=== PATIENT | female | born 1960 | race Caucasian/White ===

== ENCOUNTER 2016-11-17 12:39 | Inpatient (IN) | payer MEDICAID ==
--- NOTE | 2016-11-17 12:49 | ER Document Report ---
ED Medical Screen (RME) - General Stated Complaint: DIFFICULTY BREATHING Notes: Patient states she had started having difficulty breathing yesterday. Patient has history of asthma, and inhalers are not helping. Denies URI sumptoms prior to this occurring. Patient complains of chest pain but mostly from being difficult to take a breath. Patient coughing up yellow phlegm. Patient sent over by primary care provider for evaluation. Patient does have a fever. I have greeted and performed a rapid initial assessment of this patient. A comprehensive ED assessment and evaluation of the patient, analysis of test results and completion of the medical decision making process will be conducted by additional ED providers. TRAVEL OUTSIDE OF THE [place] IN LAST 30 DAYS: No - Related Data Allergies/Adverse Reactions: wheat [Wheat] Allergy (Unknown, Verified 11/17/16 12:46) per allergy tests duloxetine [From Cymbalta] Allergy (Verified 11/17/16 12:46) sertraline [From Zoloft] Allergy (Verified 11/17/16 12:46) aspirin [Aspirin] Adverse Reaction (Intermediate, Verified 11/17/16 12:46) GI upset naproxen [From Aleve] Adverse Reaction (Intermediate, Verified 11/17/16 12:46) GI upset Past Medical History - Past Medical History Cardiac Medical History: Denies: Hx Coronary Artery Disease, Hx Heart Attack, Hx Hypertension Pulmonary Medical History: Reports: Hx Asthma, Hx Pneumonia Denies: Hx Bronchitis, Hx COPD Neurological Medical History: Denies: Hx Cerebrovascular Accident, Hx Seizures Malignancy Medical History: Reports: Hx Breast Cancer GI Medical History: Musculoskeltal Medical History: Reports Hx Arthritis Infectious Medical History: Past Surgical History: Reports: Hx Breast Surgery - double mastectomy, Hx Hysterectomy. Denies: Hx Pacemaker - Immunizations Hx Diphtheria, Pertussis, Tetanus Vaccination: Yes - whooping cough also 02/2010 Physical Exam - Respiratory Respiratory status: Labored Breath sounds: Decreased air movement, Wheezing - inspiratory and expiratory
[2016-11-17] MEDS ORDERED: ALBUTEROL SULFATE 0.083% NEB 2.5 MG/3 ML AMPUL NEB ONE ×2 (12:52)
[2016-11-17 13:24] LABS: ABSOLUTE EOSINOPHILS # (AUTO) 0.2 10^3/uL (0.0-0.6); ABSOLUTE LYMPHOCYTES (AUTO) 1.4 10^3/uL (0.5-4.7); ABSOLUTE MONOCYTES (AUTO) 0.5 10^3/uL (0.1-1.4); ABSOLUTE NEUT (AUTO) 10.6 10^3/uL (1.7-8.2); BASOPHILS % (AUTO) 0.2 % (0-2); EOSINOPHILS % (AUTO) 1.8 % (0-6); HEMATOCRIT 44.1 % (36.0-47.0); HEMOGLOBIN 14.8 g/dL (12.0-15.5); HGB HCT DIFFERENCE 0.3; LYMPHOCYTES % (AUTO) 10.7 % (13-45); MEAN CORPUSCULAR HGB CONC 33.6 g/dL (32.0-36.0); MEAN CORPUSCULAR VOLUME 89 fl (80-97); MONOCYTES % (AUTO) 4.1 % (3-13); RED BLOOD COUNT 4.94 10^6/uL (3.72-5.28); RED CELL DISTRIBUTION WIDTH 14.7 % (11.5-14.0); SEGMENTED NEUTROPHILS % (AUTO) 83.2 % (42-78); WHITE BLOOD COUNT 12.7 10^3/uL (4.0-10.5)
[2016-11-17 13:29] LABS: PROTHROMBIN TIME 12.5 SEC (11.4-15.4)
[2016-11-17 13:41] LABS: ALANINE AMINOTRANSFERASE 18 U/L (9-52); ALBUMIN 4.4 g/dL (3.5-5.0); ALKALINE PHOSPHATASE 79 U/L (38-126); ANION GAP 14 (5-19); ASPARTATE AMINO TRANSFERASE 20 U/L (14-36); BILIRUBIN,TOTAL 0.5 mg/dL (0.2-1.3); BLOOD UREA NITROGEN 7 mg/dL (7-20); CALCIUM 9.3 mg/dL (8.4-10.2); CARBON DIOXIDE 27 mmol/L (22-30); CHLORIDE 104 mmol/L (98-107); CREATINE KINASE 62 U/L (30-135); CREATININE RESULT 0.55 mg/dL (0.52-1.25); GLUCOSE 100 mg/dL (75-110); TOTAL PROTEIN 7.7 g/dL (6.3-8.2)
[2016-11-17 13:53] LABS: CREATINE KINASE MB 0.28 ng/mL (<4.55)
[2016-11-17 13:54] LABS: TROPONIN I < 0.012 ng/mL
[2016-11-17] MEDS ORDERED: IPRATROPIUM/ALBUTEROL 0.5-2.5 MG/3 ML AMPUL NEB ONE (14:24)
[2016-11-17] MEDS ORDERED: PREDNISONE 20 MG TABLET PO ONE (14:24)
--- NOTE | 2016-11-17 14:31 | ER Document Report ---
ED Respiratory Problem - General Chief Complaint: Breathing Difficulty Stated Complaint: DIFFICULTY BREATHING Notes: The patient is a 56-year-old female, past medical history asthma, lupus, presents with 1 day of wheezing, dry cough and shortness of breath. She said the shortness of breath started after she went outside in the cold. She tried her daughter's albuterol with mild relief of her symptoms. The patient stopped smoking about a week ago and has had increased coughing since then. She is also having mild chest pain when she coughs. She denies fevers, back pain, nausea, vomiting, leg swelling, headache, hemoptysis, recent travel or sick contacts. TRAVEL OUTSIDE OF THE [place] IN LAST 30 DAYS: No - Related Data Allergies/Adverse Reactions: wheat [Wheat] Allergy (Unknown, Verified 11/17/16 12:46) per allergy tests duloxetine [From Cymbalta] Allergy (Verified 11/17/16 12:46) sertraline [From Zoloft] Allergy (Verified 11/17/16 12:46) aspirin [Aspirin] Adverse Reaction (Intermediate, Verified 11/17/16 12:46) GI upset naproxen [From Aleve] Adverse Reaction (Intermediate, Verified 11/17/16 12:46) GI upset Past Medical History - General Information source: Patient - Social History Smoking Status: Former Smoker Chew tobacco use (# tins/day): No Frequency of alcohol use: None Drug Abuse: None Family History: Reviewed & Not Pertinent Patient has suicidal ideation: No Patient has homicidal ideation: No - Past Medical History Cardiac Medical History: Denies: Hx Coronary Artery Disease, Hx Heart Attack, Hx Hypertension Pulmonary Medical History: Reports: Hx Asthma, Hx Pneumonia Denies: Hx Bronchitis, Hx COPD Neurological Medical History: Denies: Hx Cerebrovascular Accident, Hx Seizures Renal/ Medical History: Denies: Hx Peritoneal Dialysis Malignancy Medical History: Reports: Hx Breast Cancer GI Medical History: Musculoskeltal Medical History: Reports Hx Arthritis Infectious Medical History: Past Surgical History: Reports: Hx Breast Surgery - double mastectomy, Hx Hysterectomy. Denies: Hx Pacemaker - Immunizations Hx Diphtheria, Pertussis, Tetanus Vaccination: Yes - whooping cough also 02/2010 Review of Systems - Review of Systems Notes: REVIEW OF SYSTEMS: CONSTITUTIONAL: -fevers, -chills EENT: -eye pain, -difficulty swallowing, -nasal congestion CARDIOVASCULAR: +chest pain, -syncope. RESPIRATORY: +cough, +SOB GASTROINTESTINAL: -abdominal pain, -nausea, -vomiting, -diarrhea GENITOURINARY: -dysuria, -hematuria MUSCULOSKELETAL: -back pain, -neck pain SKIN: -rash or skin lesions. HEMATOLOGIC: -easy bruising or bleeding. LYMPHATIC: -swollen, enlarged glands. NEUROLOGICAL: -altered mental status or loss of consciousness, -headache, - neurologic symptoms PSYCHIATRIC: -anxiety, -depression. ALL OTHER SYSTEMS REVIEWED AND NEGATIVE. Physical Exam - Vital signs Vitals: Temp Pulse Resp BP Pulse Ox 99.6 F 103 H 22 H 139/82 H 88 L 11/17/16 12:46 11/17/16 12:46 11/17/16 12:46 11/17/16 12:46 11/17/16 12:46 - Notes Notes: PHYSICAL EXAMINATION: GENERAL: Well-appearing, well-nourished and in no acute distress. HEAD: Atraumatic, normocephalic. EYES: Pupils equal round and reactive to light, extraocular movements intact, sclera anicteric, conjunctiva are normal. ENT: nares patent, oropharynx clear without exudates. Moist mucous membranes. NECK: Normal range of motion, supple without lymphadenopathy LUNGS: No respiratory distress. Bilateral wheezing. No retractions. HEART: Regular rate and rhythm without murmurs ABDOMEN: Soft, nontender, normoactive bowel sounds. No guarding, no rebound. No masses appreciated. EXTREMITIES: Normal range of motion, no pitting or edema. No cyanosis. NEUROLOGICAL: Cranial nerves grossly intact. Normal speech, normal gait. Normal sensory, motor, and reflex exams. PSYCH: Normal mood, normal affect. SKIN: Warm, Dry, normal turgor, no rashes or lesions noted. Course - Re-evaluation Re-evalutation: Patient with wheezing and shortness of breath that started suddenly. After DuoNeb was and steroids, patient still feeling short of breath. Lungs are clear now. Patient still dropping down to 86% on room air and she does not wear oxygen at home. With tachycardia, hypoxia, tachypnea and history of lupus , patient is moderate to high risk for PE. Will obtain CTA to assess presence of PE. 11/17/16 17:05 Pt does not have PE on CTA, but does have a possible early lingula pneumonia. With leukocytosis and hypoxia, will begin CAP antibiotics. Patient satting 94% on 3 L nasal cannula. Patient requires admission for hypoxia. Spoke to Dr. Hook and he has accepted patient to Inpatient General Medical bed. - Vital Signs Vital signs: Temp Pulse Resp BP Pulse Ox 99.6 F 103 H 22 H 139/82 H 91 L 11/17/16 12:46 11/17/16 12:46 11/17/16 12:46 11/17/16 12:46 11/17/16 14:21 - Laboratory Result Diagrams: 11/17/16 13:05 11/17/16 13:05 Laboratory results interpreted by me: 11/17/16 13:05 WBC 12.7 H RDW 14.7 H Seg Neutrophils % 83.2 H Lymphocytes % 10.7 L Absolute Neutrophils 10.6 H - Diagnostic Test Radiology reviewed: Image reviewed, Reports reviewed Radiology results interpreted by me: CXR: NAD CTA: No PE, possible early lingula pneumonia. - EKG Interpretation by Me EKG shows normal: Sinus rhythm, [place], Intervals, QRS Complexes, ST-T Waves Rate: Tachycardia Discharge - Discharge Clinical Impression: Asthma exacerbation, Hypoxia Pneumonia Qualifiers: Pneumonia type: due to unspecified organism Laterality: right Lung location: middle lobe of lung Qualified Code(s): J18.1 - Lobar pneumonia, unspecified organism Condition: Stable Disposition: ADMITTED INPATIENT Admitting Provider: Sangita Hook Unit Admitted: Medical Floor Referrals: SIDRA OVALLE DO [Primary Care Provider] - Follow up as needed
[2016-11-17] MEDS ORDERED: MORPHINE SULFATE IR 30 MG TABLET PO ONE ×2 (16:08→17:00)
[2016-11-17] MEDS ORDERED: CEFTRIAXONE INJ 1000 MG VIAL IV ONE (17:00)
[2016-11-17] MEDS ORDERED: AZITHROMYCIN INJ 500 MG VIAL IV ONE (17:00)
[2016-11-17] MEDS ORDERED: ONDANSETRON HCL INJ/PF 4 MG/2 ML SDV IV PRN (17:42)
[2016-11-17] MEDS ORDERED: ONDANSETRON 4 MG TAB.RAPDIS PO PRN (17:42)
[2016-11-17] MEDS ORDERED: ACETAMINOPHEN 325 MG TABLET PO PRN (17:42)
[2016-11-17] MEDS ORDERED: (PENDING PHARMACY ID) (Ranitidine Hcl [Zantac 150 Mg Tablet] 150 MG) PO PRN (17:46)
[2016-11-17] MEDS ORDERED: BECLOMETHASONE DIPROPIONATE IH SCH (18:00)
[2016-11-17] MEDS ORDERED: (PENDING PHARMACY ID) (Gabapentin [Gabapentin] 800 MG) PO SCH (18:00)
--- NOTE | 2016-11-17 18:03 | PDOC H&P ---
History of Present Illness Admission Date/PCP: SIDRA OVALLE DO Patient complains of: Shortness of breath History of Present Illness: JULIA LOMELI is a 56 year old female with a history of asthma who presents with a 2 day history of a cough productive of some yellow sputum as well as wheezing and shortness of breath. Patient reports is gotten worse over the last 2 days and she presented today and was seen emergency room and found to have an acute asthma exacerbation. Patient had a chest CT because the possibility of a PE which was negative for PE but did show questionable early infiltrate. The patient denies having any fevers or chills associated with this. She denies any orthopnea or PND. She denies any lower extremity edema. The patient has had the productive cough and reports that both of her daughters have been sick for the last several days. Past Medical History Cardiac Medical History: Denies: Coronary Artery Disease, Myocardial Infarction, Hypertension Pulmonary Medical History: Reports: Asthma, Pneumonia Denies: Bronchitis, Chronic Obstructive Pulmonary Disease (COPD) EENT Medical History: Reports: None Neurological Medical History: Denies: Seizures Malignancy Medical History: Reports: Breast Cancer GI Medical History: Reports: Diverticulitis, Other - Irritable bowel syndrome Musculoskeltal Medical History: Reports: Arthritis, Other - Lupus Skin Medical History: Reports: None Psychiatric Medical History: Reports: Depression, Post Traumatic Stress Disorder Hematology: Denies: Anemia Infectious Medical History: Reports: None Past Surgical History Past Surgical History: Reports: Hysterectomy, Mastectomy - Bilateral, Orthopedic Surgery Denies: Pacemaker Social History Information Source: Patient Lives with: Family Smoking Status: Former Smoker Frequency of Alcohol Use: None Hx Recreational Drug Use: No Drugs: None Hx Prescription Drug Abuse: No - Advance Directive Resuscitation Status: Full Code Family History Family History: Mother is 86 alive and has breast cancer. Father's health history is unknown. Parental Family History Reviewed: Yes Children Family History Reviewed: No Sibling(s) Family History Reviewed.: No Medication/Allergy Home Medications: Cetirizine HCl [Zyrtec 10 mg Tablet] 10 mg PO DAILY 05/06/12 Beclomethasone Dipropionate [Qvar Aerosol w/Adapter] 7.3 gm IH BID #1 aer.w.adap 05/07/12 Albuterol Sulfate [Proventil HFA] 6.7 gm IH BID 06/30/12 Diazepam [Valium] 10 mg PO TID 06/30/12 Furosemide [Lasix 20 mg Tablet] 20 mg PO DAILY 06/28/16 Gabapentin 800 mg PO TID 06/28/16 Morphine Sulfate [Morphine Sulfate ER] 15 mg PO Q6H PRN 06/28/16 Morphine Sulfate [Morphine Sulfate ER] 30 mg PO BID 06/28/16 Ranitidine HCl [Zantac] 150 mg PO ASDIR PRN 06/28/16 Allergies/Adverse Reactions: wheat [Wheat] Allergy (Unknown, Verified 11/17/16 12:46) per allergy tests duloxetine [From Cymbalta] Allergy (Verified 11/17/16 12:46) sertraline [From Zoloft] Allergy (Verified 11/17/16 12:46) aspirin [Aspirin] Adverse Reaction (Intermediate, Verified 11/17/16 12:46) GI upset naproxen [From Aleve] Adverse Reaction (Intermediate, Verified 11/17/16 12:46) GI upset Review of Systems Constitutional: PRESENT: fever(s), weakness. ABSENT: chills, headache(s), night sweats, weight gain, weight loss Eyes: ABSENT: visual disturbances Ears: ABSENT: hearing changes Cardiovascular: PRESENT: dyspnea on exertion. ABSENT: chest pain, edema, orthropnea, palpitations Respiratory: PRESENT: cough, dyspnea, sputum. ABSENT: hemoptysis Gastrointestinal: ABSENT: abdominal pain, constipation, diarrhea, hematemesis, hematochezia, nausea, vomiting Genitourinary: PRESENT: other - Has a bladder stimulator in place. ABSENT: dysuria, hematuria Musculoskeletal: PRESENT: back pain Integumentary: ABSENT: rash, wounds Neurological: ABSENT: abnormal gait, abnormal speech, confusion, dizziness, focal weakness, syncope Psychiatric: ABSENT: anxiety, depression Endocrine: ABSENT: cold intolerance, heat intolerance, polydipsia, polyuria Hematologic/Lymphatic: ABSENT: easy bleeding, easy bruising Physical Exam Vital Signs: Temp Pulse Resp BP Pulse Ox 99.6 F 103 H 22 H 139/82 H 91 L 11/17/16 12:46 11/17/16 12:46 11/17/16 12:46 11/17/16 12:46 11/17/16 14:21 Intake & Output 11/16/16 11/17/16 11/18/16 06:59 06:59 06:59 Weight 87.997 kg General appearance: PRESENT: no acute distress, well-developed, well-nourished Head exam: PRESENT: atraumatic, normocephalic Eye exam: PRESENT: conjunctiva pink, EOMI, PERRLA. ABSENT: scleral icterus Ear exam: PRESENT: normal external ear exam Mouth exam: PRESENT: moist, tongue midline Neck exam: ABSENT: carotid bruit, JVD, lymphadenopathy, thyromegaly Respiratory exam: PRESENT: wheezes - Bilateral expiratory wheezes.. ABSENT: rales, rhonchi Cardiovascular exam: PRESENT: RRR. ABSENT: diastolic murmur, rubs, systolic murmur Pulses: PRESENT: normal dorsalis pedis pul GI/Abdominal exam: PRESENT: normal bowel sounds, soft. ABSENT: distended, guarding, mass, organolmegaly, rebound, tenderness Rectal exam: PRESENT: deferred Extremities exam: ABSENT: calf tenderness, clubbing, pedal edema Neurological exam: PRESENT: alert, awake, oriented to person, oriented to place , oriented to time, oriented to situation, CN II-XII grossly intact. ABSENT: motor sensory deficit Psychiatric exam: PRESENT: appropriate affect Skin exam: PRESENT: dry, intact, warm. ABSENT: cyanosis, rash Results Laboratory Results: 11/17/16 13:05 11/17/16 13:05 11/17/16 11/17/16 13:05 13:05 WBC 12.7 H RBC 4.94 Hgb 14.8 Hct 44.1 MCV 89 MCH 30.0 MCHC 33.6 RDW 14.7 H Plt Count 193 Seg Neutrophils % 83.2 H Lymphocytes % 10.7 L Monocytes % 4.1 Eosinophils % 1.8 Basophils % 0.2 Absolute Neutrophils 10.6 H Absolute Lymphocytes 1.4 Absolute Monocytes 0.5 Absolute Eosinophils 0.2 Absolute Basophils 0.0 Sodium 145.0 Potassium 4.0 Chloride 104 Carbon Dioxide 27 Anion Gap 14 BUN 7 Creatinine 0.55 Est GFR ( Amer) > 60 Est GFR (Non-Af Amer) > 60 Glucose 100 Calcium 9.3 Total Bilirubin 0.5 AST 20 ALT 18 Alkaline Phosphatase 79 Total Protein 7.7 Albumin 4.4 11/17/16 11/17/16 13:05 13:05 Creatine Kinase 62 CK-MB (CK-2) 0.28 Troponin I < 0.012 Impressions: Chest X-Ray 11/17/16 12:47 IMPRESSION: NO ACUTE RADIOGRAPHIC FINDING IN THE CHEST. Chest/Abdomen CTA 11/17/16 16:06 IMPRESSION: 1. Patchy airspace disease in the lingula most likely atelectasis although developing pneumonia or edema are possibilities. 2. No pulmonary emboli. 3. Right hilar adenopathy most likely reactive. Assessment & Plan - Diagnosis (1) Asthma exacerbation Is this a current diagnosis for this admission?: YesPlan: Patient has an acute asthma exacerbation possibly pneumonia. We will treat with IV Solu-Medrol, antibiotics and nebulizers. Give oxygen as needed also. (2) Pneumonia Qualifiers: Pneumonia type: due to unspecified organism Laterality: right Lung location: middle lobe of lung Qualified Code(s): J18.1 - Lobar pneumonia, unspecified organism Is this a current diagnosis for this admission?: YesPlan: Patient had a CT angiogram that shows a small area of abnormality possibly atelectasis versus pneumonia. We'll go ahead and treat presumptively for presumed pneumonia with Rocephin and Zithromax. (3) Neurogenic bladder Is this a current diagnosis for this admission?: YesPlan: Patient has a history of neurogenic bladder but has a bladder stimulator in place and has good control with this. Patient is unable to have an MRI. (4) Depression Is this a current diagnosis for this admission?: YesPlan: Patient is controlled without medications at this time. (5) Lupus (systemic lupus erythematosus) Is this a current diagnosis for this admission?: YesPlan: Patient was just diagnosed 2 months ago with lupus and was started on Plaquenil. We will hold Plaquenil well she has an active infection. (6) Breast cancer Is this a current diagnosis for this admission?: Yes (7) Irritable bowel syndrome (IBS) Is this a current diagnosis for this admission?: Yes (8) Posttraumatic stress disorder Is this a current diagnosis for this admission?: YesPlan: Patient takes Valium for this. (9) Chronic back pain Is this a current diagnosis for this admission?: YesPlan: Patient has been on chronic narcotics and we will continue with her usual dose. - Time Time Spent: 50 to 70 Minutes - Inpatient Certification Medical Necessity: Need Close Monitoring Due to Risk of Patient Decompensation, Need for IV Antibiotics - Plan Summary Plan Summary: We'll admit as a full admission as I anticipate require greater than 2 midnight hospital stay because of her wheezing and need for IV steroids and nebulizers.
[2016-11-17 18:47] LABS: APPEARANCE,URINE CLEAR; BILIRUBIN,URINE NEGATIVE (NEGATIVE); GLUCOSE, URINE NEGATIVE (NEGATIVE); KETONES,URINE NEGATIVE (NEGATIVE); LEUKOCYTE ESTERASE,URINE NEGATIVE (NEGATIVE); NITRITE,URINE NEGATIVE (NEGATIVE); PROTEIN,URINE NEGATIVE (NEGATIVE); URINE SPECIFIC GRAVITY 1.056; UROBILINOGEN,URINE NEGATIVE mg/dL (<2.0)
[2016-11-17] MEDS ORDERED: ENOXAPARIN SODIUM INJ 40 MG/0.4 ML DISP.SYRIN SUBCUT ONE (19:00)
[2016-11-17] MEDS: IPRATROPIUM/ALBUTEROL 0.5-2.5 MG/3 ML AMPUL NEB SCH (21:11)
[2016-11-17] MEDS: GABAPENTIN 400 MG CAPSULE PO SCH (22:11)
[2016-11-17] MEDS: DIAZEPAM 5 MG TABLET PO SCH (22:12)
[2016-11-17] MEDS: MORPHINE SULFATE SR 30 MG TABLET PO SCH (22:12)
[2016-11-17] MEDS: METHYLPREDNISOLONE INJ 40 MG/1 ML SDV IV SCH (22:13)
[2016-11-17] MEDS: FAMOTIDINE 20 MG TABLET PO SCH (22:13)
[2016-11-17] MEDS: NORMAL SALINE 1000 ML 1,000 ML IV PRN (22:13)
[2016-11-18] MEDS: IPRATROPIUM/ALBUTEROL 0.5-2.5 MG/3 ML AMPUL NEB SCH ×4 (02:23→20:27)
[2016-11-18 05:35] LABS: HEMATOCRIT 39.7 % (36.0-47.0); HEMOGLOBIN 13.3 g/dL (12.0-15.5); HGB HCT DIFFERENCE 0.2; MEAN CORPUSCULAR HEMOGLOBIN 29.9 pg (27.0-33.4); MEAN CORPUSCULAR HGB CONC 33.6 g/dL (32.0-36.0); MEAN CORPUSCULAR VOLUME 89 fl (80-97); RED BLOOD COUNT 4.45 10^6/uL (3.72-5.28); RED CELL DISTRIBUTION WIDTH 14.2 % (11.5-14.0); WHITE BLOOD COUNT 11.1 10^3/uL (4.0-10.5)
[2016-11-18 05:55] LABS: ANION GAP 14 (5-19); BLOOD UREA NITROGEN 9 mg/dL (7-20); CALCIUM 8.9 mg/dL (8.4-10.2); CARBON DIOXIDE 24 mmol/L (22-30); CHLORIDE 106 mmol/L (98-107); CREATININE RESULT 0.45 mg/dL (0.52-1.25); GLUCOSE 138 mg/dL (75-110); POTASSIUM 4.3 mmol/L (3.6-5.0); SODIUM 143.5 mmol/L (137-145)
[2016-11-18] MEDS: DIAZEPAM 5 MG TABLET PO SCH ×3 (06:29→21:02)
[2016-11-18] MEDS: METHYLPREDNISOLONE INJ 40 MG/1 ML SDV IV SCH ×3 (06:29→21:01)
[2016-11-18] MEDS: GABAPENTIN 400 MG CAPSULE PO SCH ×3 (06:29→21:01)
[2016-11-18] MEDS: NORMAL SALINE 1000 ML 1,000 ML IV PRN ×2 (08:07→18:31)
[2016-11-18] MEDS: ENOXAPARIN SODIUM INJ 40 MG/0.4 ML DISP.SYRIN SUBCUT SCH (08:07)
[2016-11-18] MEDS ORDERED: BUTALB/ACETAMINOPHEN/CAFFEINE 1 TAB EACH PO PRN (08:37)
[2016-11-18] MEDS: FUROSEMIDE 20 MG TABLET PO SCH (09:35)
[2016-11-18] MEDS: CETIRIZINE 10 MG TABLET PO SCH (09:35)
[2016-11-18] MEDS: FAMOTIDINE 20 MG TABLET PO SCH ×2 (09:36→21:02)
[2016-11-18] MEDS: MORPHINE SULFATE SR 30 MG TABLET PO SCH ×2 (09:36→21:03)
--- NOTE | 2016-11-18 14:40 | PDOC PROGRESS REPORT ---
Subjective Progress Note for:: 11/18/16 Subjective:: Reports that her wheezing is better. Physical Exam Vital Signs: Temp Pulse Resp BP Pulse Ox 98.4 F 82 18 101/58 L 99 11/18/16 12:12 11/18/16 12:12 11/18/16 12:12 11/18/16 12:12 11/18/16 12:12 Intake & Output 11/17/16 11/18/16 11/19/16 06:59 06:59 06:59 Intake Total 670 Balance 670 Weight 94.4 kg General appearance: PRESENT: no acute distress Eye exam: PRESENT: conjunctiva pink. ABSENT: scleral icterus Mouth exam: PRESENT: moist, tongue midline Neck exam: ABSENT: JVD Respiratory exam: PRESENT: wheezes - Bilateral expiratory wheezes. ABSENT: rales, rhonchi Cardiovascular exam: PRESENT: RRR. ABSENT: diastolic murmur, rubs, systolic murmur GI/Abdominal exam: PRESENT: normal bowel sounds, soft. ABSENT: distended, guarding, mass, organolmegaly, rebound, tenderness Extremities exam: ABSENT: calf tenderness, clubbing, pedal edema Neurological exam: PRESENT: alert, awake, oriented to person, oriented to place , oriented to time, oriented to situation, CN II-XII grossly intact. ABSENT: motor sensory deficit Psychiatric exam: PRESENT: appropriate affect Skin exam: PRESENT: dry, intact, warm. ABSENT: cyanosis, rash Results Laboratory Results: 11/18/16 05:14 11/18/16 05:14 11/17/16 11/18/16 11/18/16 17:57 05:14 05:14 WBC 11.1 H RBC 4.45 Hgb 13.3 Hct 39.7 MCV 89 MCH 29.9 MCHC 33.6 RDW 14.2 H Plt Count 169 Sodium 143.5 Potassium 4.3 Chloride 106 Carbon Dioxide 24 Anion Gap 14 BUN 9 Creatinine 0.45 L Est GFR ( Amer) > 60 Est GFR (Non-Af Amer) > 60 Glucose 138 H Calcium 8.9 Magnesium 2.0 Urine Color YELLOW Urine Appearance CLEAR Urine pH 5.0 Ur Specific [place] 1.056 Urine Protein NEGATIVE Urine Glucose (UA) NEGATIVE Urine Ketones NEGATIVE Urine Blood SMALL H Urine Nitrite NEGATIVE Ur Leukocyte Esterase NEGATIVE Urine WBC (Auto) 1 Urine RBC (Auto) 5 Impressions: Chest X-Ray 11/17/16 12:47 IMPRESSION: NO ACUTE RADIOGRAPHIC FINDING IN THE CHEST. Chest/Abdomen CTA 11/17/16 16:06 IMPRESSION: 1. Patchy airspace disease in the lingula most likely atelectasis although developing pneumonia or edema are possibilities. 2. No pulmonary emboli. 3. Right hilar adenopathy most likely reactive. Assessment & Plan - Diagnosis (1) Asthma exacerbation Is this a current diagnosis for this admission?: YesPlan: Patient has an acute asthma exacerbation possibly pneumonia. We will continue with IV Solu-Medrol, antibiotics and nebulizers. Give oxygen as needed also. (2) Pneumonia Qualifiers: Pneumonia type: due to unspecified organism Laterality: right Lung location: middle lobe of lung Qualified Code(s): J18.1 - Lobar pneumonia, unspecified organism Is this a current diagnosis for this admission?: YesPlan: Patient had a CT angiogram that shows a small area of abnormality possibly atelectasis versus pneumonia. We'll go ahead and treat presumptively for presumed pneumonia with Rocephin and Zithromax. (3) Neurogenic bladder Is this a current diagnosis for this admission?: YesPlan: Patient has a history of neurogenic bladder but has a bladder stimulator in place and has good control with this. Patient is unable to have an MRI. (4) Depression Is this a current diagnosis for this admission?: YesPlan: Patient is controlled without medications at this time. (5) Lupus (systemic lupus erythematosus) Is this a current diagnosis for this admission?: YesPlan: Patient was just diagnosed 2 months ago with lupus and was started on Plaquenil. We will hold Plaquenil well she has an active infection. (6) Breast cancer Is this a current diagnosis for this admission?: Yes (7) Irritable bowel syndrome (IBS) Is this a current diagnosis for this admission?: Yes (8) Posttraumatic stress disorder Is this a current diagnosis for this admission?: YesPlan: Patient takes Valium for this. (9) Chronic back pain Is this a current diagnosis for this admission?: YesPlan: Patient has been on chronic narcotics and we will continue with her usual dose. - Time Time Spent with patient: 25-34 minutes - Inpatient Certification Medical Necessity: Need Close Monitoring Due to Risk of Patient Decompensation
[2016-11-18] MEDS: MORPHINE SULFATE SR 15 MG TABLET PO PRN ×2 (14:50→21:02)
--- NOTE | 2016-11-18 16:02 | EKG REPORT ---
SEVERITY:- OTHERWISE NORMAL ECG - SINUS TACHYCARDIA : Confirmed by: Rachel Perez MD 18-Nov-2016 16:02:00
[2016-11-18] MEDS ORDERED: AZITHROMYCIN 500 MG in DEXTROSE 5%-WATER 250 ML IV SCH (18:00)
[2016-11-18] MEDS ORDERED: CEFTRIAXONE 1 GM/D5W RTU 1 GM/50 ML RTUPB IV SCH (20:00)
[2016-11-19] MEDS: IPRATROPIUM/ALBUTEROL 0.5-2.5 MG/3 ML AMPUL NEB SCH ×2 (02:17→08:06)
[2016-11-19 04:46] LABS: ABSOLUTE LYMPHOCYTES (AUTO) 1.9 10^3/uL (0.5-4.7); ABSOLUTE MONOCYTES (AUTO) 0.9 10^3/uL (0.1-1.4); ABSOLUTE NEUT (AUTO) 11.3 10^3/uL (1.7-8.2); BASOPHILS % (AUTO) 0.2 % (0-2); EOSINOPHILS % (AUTO) 0.1 % (0-6); HEMATOCRIT 39.1 % (36.0-47.0); HEMOGLOBIN 12.8 g/dL (12.0-15.5); HGB HCT DIFFERENCE -0.7; LYMPHOCYTES % (AUTO) 13.2 % (13-45); MEAN CORPUSCULAR HEMOGLOBIN 29.7 pg (27.0-33.4); MEAN CORPUSCULAR HGB CONC 32.8 g/dL (32.0-36.0); MEAN CORPUSCULAR VOLUME 90 fl (80-97); MONOCYTES % (AUTO) 6.6 % (3-13); RED BLOOD COUNT 4.32 10^6/uL (3.72-5.28); RED CELL DISTRIBUTION WIDTH 14.7 % (11.5-14.0); SEGMENTED NEUTROPHILS % (AUTO) 79.9 % (42-78); WHITE BLOOD COUNT 14.2 10^3/uL (4.0-10.5)
[2016-11-19 05:07] LABS: ANION GAP 12 (5-19); BLOOD UREA NITROGEN 17 mg/dL (7-20); CALCIUM 9.1 mg/dL (8.4-10.2); CARBON DIOXIDE 27 mmol/L (22-30); CHLORIDE 107 mmol/L (98-107); CREATININE RESULT 0.55 mg/dL (0.52-1.25); GLUCOSE 111 mg/dL (75-110); POTASSIUM 4.4 mmol/L (3.6-5.0); SODIUM 145.5 mmol/L (137-145)
[2016-11-19] MEDS: DIAZEPAM 5 MG TABLET PO SCH (06:48)
[2016-11-19] MEDS: GABAPENTIN 400 MG CAPSULE PO SCH (06:48)
[2016-11-19] MEDS: METHYLPREDNISOLONE INJ 40 MG/1 ML SDV IV SCH (06:48)
[2016-11-19] MEDS: MORPHINE SULFATE SR 15 MG TABLET PO PRN (06:53)
[2016-11-19] MEDS: ENOXAPARIN SODIUM INJ 40 MG/0.4 ML DISP.SYRIN SUBCUT SCH (08:03)
[2016-11-19 09:02] VITALS: BP 106/57
[2016-11-19] MEDS: FAMOTIDINE 20 MG TABLET PO SCH (09:05)
[2016-11-19] MEDS: CETIRIZINE 10 MG TABLET PO SCH (09:05)
[2016-11-19] MEDS: FUROSEMIDE 20 MG TABLET PO SCH (09:05)
[2016-11-19] MEDS: MORPHINE SULFATE SR 30 MG TABLET PO SCH (09:05)
--- NOTE | 2016-11-19 13:19 | PDOC DISCHARGE SUMMARY ---
General - Admit/Disc Date/PCP Admission Date/Primary Care Provider: 11/17/16 17:42 SIDRA OVALLE, Discharge Date: 11/19/16 - Discharge Diagnosis (1) Asthma exacerbation Is this a current diagnosis for this admission?: Yes (2) Pneumonia Is this a current diagnosis for this admission?: YesSummary: Negative cultures. Treated with Zithromax and initially Rocephin and now oral Ceftin (3) Neurogenic bladder Is this a current diagnosis for this admission?: YesSummary: Patient has a neurostimulator for neurogenic bladder (4) Depression Is this a current diagnosis for this admission?: Yes (5) Lupus (systemic lupus erythematosus) Is this a current diagnosis for this admission?: Yes (6) Breast cancer Is this a current diagnosis for this admission?: Yes (7) Irritable bowel syndrome (IBS) Is this a current diagnosis for this admission?: Yes (8) Posttraumatic stress disorder Is this a current diagnosis for this admission?: Yes (9) Chronic back pain Is this a current diagnosis for this admission?: Yes - Additional Information Resuscitation Status: Full Code Discharge Diet: Regular Discharge Activity: Activity As Tolerated Home Medications: Cetirizine HCl [Zyrtec 10 mg Tablet] 10 mg PO DAILY 05/06/12 Diazepam [Valium] 10 mg PO Q8 06/30/12 Furosemide [Lasix 20 mg Tablet] 20 mg PO DAILY 06/28/16 Gabapentin 800 mg PO Q8 06/28/16 Morphine Sulfate [Morphine Sulfate ER] 15 mg PO Q6H PRN 06/28/16 Morphine Sulfate [Morphine Sulfate ER] 30 mg PO Q12 06/28/16 Ranitidine HCl [Zantac 150 mg Tablet] 150 mg PO DAILYP PRN 06/28/16 Albuterol Sulfate [Proair HFA] 2 puff IH BID 11/17/16 Beclomethasone Dipropionate [Qvar] 2 puff IH Q12 11/17/16 Cefuroxime Axetil [Ceftin 500 mg Tablet] 1 tab PO BID #20 tablet 11/19/16 Ipratropium/Albuterol Sulfate [Duoneb 3 ml Ampul] 3 ml NEB RTQ6 #120 vial.neb Prednisone 10 mg PO DAILY #39 tablet 11/19/16 History of Present Illness History of Present Illness: JULIA LOMELI is a 56 year old female with a history of asthma who presents with a 2 day history of a cough productive of some yellow sputum as well as wheezing and shortness of breath. Patient reports is gotten worse over the last 2 days and she presented today and was seen emergency room and found to have an acute asthma exacerbation. Patient had a chest CT because the possibility of a PE which was negative for PE but did show questionable early infiltrate. The patient denies having any fevers or chills associated with this. She denies any orthopnea or PND. She denies any lower extremity edema. The patient has had the productive cough and reports that both of her daughters have been sick for the last several days. Hospital Course Hospital Course: 56-year-old female with a history of asthma presented with acute respiratory failure secondary to an acute asthma exacerbation along with pneumonia. Patient was treated with IV steroids, nebulizers, Rocephin and Zithromax. Patient had improvement in her respiratory status and the day of discharge she was much improved but still did have some expiratory wheezes. She reported that she was ready to go home. She had completed 3 doses of Zithromax and is changed from Rocephin to Ceftin by mouth. Medical problems were stable during this hospitalization. Physical Exam Vital Signs: Temp Pulse Resp BP Pulse Ox 97.3 F 73 18 106/57 L 93 11/19/16 10:23 11/19/16 10:23 11/19/16 10:23 11/19/16 10:23 11/19/16 10:23 Intake & Output 11/18/16 11/19/16 11/20/16 06:59 06:59 06:59 Intake Total 670 4054 76 Balance 670 4054 76 Weight 94.4 kg 94.4 kg General appearance: PRESENT: no acute distress, well-developed, well-nourished Eye exam: PRESENT: conjunctiva pink. ABSENT: scleral icterus Mouth exam: PRESENT: moist, tongue midline Neck exam: ABSENT: JVD Respiratory exam: PRESENT: clear to auscultation hadley, wheezes - Scattered expiratory wheezes. ABSENT: rales, rhonchi Cardiovascular exam: PRESENT: RRR. ABSENT: diastolic murmur, rubs, systolic murmur GI/Abdominal exam: PRESENT: normal bowel sounds, soft. ABSENT: distended, guarding, mass, organolmegaly, rebound, tenderness Extremities exam: ABSENT: calf tenderness, clubbing, pedal edema Psychiatric exam: PRESENT: appropriate affect Skin exam: PRESENT: dry, intact, warm. ABSENT: cyanosis, rash Results Laboratory Results: 11/19/16 04:10 11/19/16 04:10 11/19/16 11/19/16 04:10 04:10 WBC 14.2 H RBC 4.32 Hgb 12.8 Hct 39.1 MCV 90 MCH 29.7 MCHC 32.8 RDW 14.7 H Plt Count 171 Seg Neutrophils % 79.9 H Lymphocytes % 13.2 Monocytes % 6.6 Eosinophils % 0.1 Basophils % 0.2 Absolute Neutrophils 11.3 H Absolute Lymphocytes 1.9 Absolute Monocytes 0.9 Absolute Eosinophils 0.0 Absolute Basophils 0.0 Sodium 145.5 H Potassium 4.4 Chloride 107 Carbon Dioxide 27 Anion Gap 12 BUN 17 Creatinine 0.55 Est GFR ( Amer) > 60 Est GFR (Non-Af Amer) > 60 Glucose 111 H Calcium 9.1 Impressions: Chest X-Ray 11/17/16 12:47 IMPRESSION: NO ACUTE RADIOGRAPHIC FINDING IN THE CHEST. Chest/Abdomen CTA 11/17/16 16:06 IMPRESSION: 1. Patchy airspace disease in the lingula most likely atelectasis although developing pneumonia or edema are possibilities. 2. No pulmonary emboli. 3. Right hilar adenopathy most likely reactive. Qualifiers PATEINT BEING DISCHARGED WITH ANY OF THE FOLLOWING DIAGNOSIS?: No Plan Discharge Plan: Patient is discharged home in stable condition. She will follow up with her primary care doctor in 1-2 weeks. Time Spent: Greater than 30 Minutes
== END 2016-11-19 10:44 | disposition home or self-care (01) | DRG 193 ==
LOC: ER 12:39 → EH 17:42 → UNDOADMIN 17:54 → EH 17:54 → 4N 20:58
PROVIDERS: ADMIT Emergency Medicine; ATTEND Emergency Medicine
PROC: 3E0F73Z Introduction of Anti-inflammatory into Respiratory Tract, Via Natural or Artificial Opening (ICD-10-PCS; principal; 2016-11-17)
DX: J18.1 Lobar pneumonia, unspecified organism (principal); J96.01 Acute respiratory failure with hypoxia; J45.901 Unspecified asthma with (acute) exacerbation; M19.90 Unspecified osteoarthritis, unspecified site; F32.9 Major depressive disorder, single episode, unspecified; M32.9 Systemic lupus erythematosus, unspecified; N31.9 Neuromuscular dysfunction of bladder, unspecified; Z96.0 Presence of urogenital implants; K58.9 Irritable bowel syndrome, unspecified; F43.10 Post-traumatic stress disorder, unspecified; G89.29 Other chronic pain; M54.9 Dorsalgia, unspecified; Z79.899 Other long term (current) drug therapy; Z90.13 Acquired absence of bilateral breasts and nipples; Z85.3 Personal history of malignant neoplasm of breast; Z90.710 Acquired absence of both cervix and uterus; Z87.891 Personal history of nicotine dependence; Z88.8 Allergy status to other drugs, medicaments and biological substances; Z88.6 Allergy status to analgesic agent
CPT/HCPCS: 36415; 71010; 71275; 80048; 80053; 81001; 82550; 82553; 83735; 84484; 85025; 85027; 85610; 87040; 93005; 93010; 94640; 99285; J0456; J0696; J1650; J2920; J3490; J7030; J7060; J7512; J7620

== ENCOUNTER 2017-01-12 19:10 | Emergency (ER) | payer OTHER, MEDICAID ==
[2017-01-12] MEDS ORDERED: BACITRACIN ZINC OINTMENT 15 GM TP ONE (20:16)
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
[2017-01-12 21:27] VITALS: BP 109/86
== END 2017-01-12 21:27 | disposition home or self-care (01) ==
LOC: ER 19:10
DX: S16.1XXA Strain of muscle, fascia and tendon at neck level, initial encounter (principal); S39.012A Strain of muscle, fascia and tendon of lower back, initial encounter; T22.012A Burn of unspecified degree of left forearm, initial encounter; M54.2 Cervicalgia; R07.89 Other chest pain; M79.632 Pain in left forearm; V43.52XA Car driver injured in collision with other type car in traffic accident, initial encounter; W22.10XA Striking against or struck by unspecified automobile airbag, initial encounter; J45.909 Unspecified asthma, uncomplicated; F17.210 Nicotine dependence, cigarettes, uncomplicated; Z91.018 Allergy to other foods; Z88.8 Allergy status to other drugs, medicaments and biological substances; Z88.6 Allergy status to analgesic agent; Z71.6 Tobacco abuse counseling; Z85.3 Personal history of malignant neoplasm of breast
CPT/HCPCS: 71020; 72110; 72125; 99284; J3490

== ENCOUNTER → 2017-04-25 | Outpatient (CLI) | payer MEDICAID ==
--- NOTE | 2017-04-25 12:33 | RADIOLOGY REPORT (SQ) ---
EXAM DESCRIPTION: KNEE RIGHT 4 VIEWS COMPLETED DATE/TIME: 04/25/2017 11:25 am REASON FOR STUDY: PRIMARY OA OF BOTH KNEES (M17.0) M17.0 BILATERAL PRIMARY OSTEOARTHRITIS OF KNEE COMPARISON: None. NUMBER OF VIEWS: Four views. TECHNIQUE: AP, lateral, and both oblique radiographic images acquired of the right knee. LIMITATIONS: None. FINDINGS: MINERALIZATION: Normal. BONES: No acute fracture or dislocation. No worrisome bone lesions. JOINT: Small suprapatellar knee joint effusion. Very mild medial compartment joint space narrowing SOFT TISSUES: No soft tissue swelling. No radio-opaque foreign body. OTHER: No other significant finding. IMPRESSION: No acute fracture or malalignment. Small suprapatellar knee joint effusion. Mild medial compartment joint space narrowing TECHNICAL DOCUMENTATION: JOB ID: [id number] [employer]- All Rights Reserved
== END ==
LOC: RAD 11:06
PROVIDERS: ATTEND Family Medicine
DX: M17.0 Bilateral primary osteoarthritis of knee (principal)

== ENCOUNTER 2018-05-28 06:33 | Day surgery (SDC) | payer MEDICAID ==
[2018-05-24 10:12] LABS: HEMATOCRIT 48.6 % (36.0-47.0); HEMOGLOBIN 16.4 g/dL (12.0-15.5); MEAN CORPUSCULAR HEMOGLOBIN 30.3 pg (27.0-33.4); MEAN CORPUSCULAR HGB CONC 33.8 g/dL (32.0-36.0); MEAN CORPUSCULAR VOLUME 90 fl (80-97); PLATELET COUNT 208 10^3/uL (150-450); RED BLOOD COUNT 5.42 10^6/uL (3.72-5.28); RED CELL DISTRIBUTION WIDTH 15.7 % (11.5-14.0); WHITE BLOOD COUNT 8.1 10^3/uL (4.0-10.5)
[2018-05-24 10:16] LABS: APPEARANCE,URINE SLIGHTLY-CLOUDY; BILIRUBIN,URINE NEGATIVE (NEGATIVE); COLOR,URINE YELLOW; GLUCOSE, URINE NEGATIVE (NEGATIVE); KETONES,URINE NEGATIVE (NEGATIVE); LEUKOCYTE ESTERASE,URINE NEGATIVE (NEGATIVE); NITRITE,URINE NEGATIVE (NEGATIVE); PROTEIN,URINE NEGATIVE (NEGATIVE); URINE SPECIFIC GRAVITY 1.006; UROBILINOGEN,URINE NEGATIVE mg/dL (<2.0)
--- NOTE | 2018-05-24 10:23 | EKG REPORT ---
SEVERITY:- NORMAL ECG - SINUS RHYTHM : Confirmed by: Rachel Perez MD 24-May-2018 10:21:39
[2018-05-24 12:49] LABS: ANION GAP 10 (5-19); BLOOD UREA NITROGEN 7 mg/dL (7-20); CALCIUM 9.6 mg/dL (8.4-10.2); CARBON DIOXIDE 29 mmol/L (22-30); CHLORIDE 106 mmol/L (98-107); GLUCOSE 110 mg/dL (75-110); POTASSIUM 4.4 mmol/L (3.6-5.0); SODIUM 144.6 mmol/L (137-145)
--- NOTE | 2018-05-24 14:25 | RADIOLOGY REPORT (SQ) ---
EXAM DESCRIPTION: CHEST PA/LATERAL COMPLETED DATE/TIME: 05/24/2018 1:15 pm REASON FOR STUDY: PRE-OP COMPARISON: 01/12/2017 EXAM PARAMETERS: NUMBER OF VIEWS: two views TECHNIQUE: Digital Frontal and Lateral radiographic views of the chest acquired. RADIATION DOSE: NA LIMITATIONS: none FINDINGS: LUNGS AND PLEURA: Stable slight scarring or atelectasis at the left lung base. No opacit ies, masses or pneumothorax. No pleural effusion. MEDIASTINUM AND HILAR STRUCTURES: No masses or contour abnormalities. HEART AND VASCULAR STRUCTURES: Heart normal size. No evidence for failure. BONES: No acute findings. HARDWARE: None in the chest. OTHER: Prior bilateral breast surgery. Partially visualized hardware lower anterior cervical spine. IMPRESSION: 1. No significant interval changes since the prior examination dated 01/12/2017. No acu te finding. TECHNICAL DOCUMENTATION: JOB ID: [id number] [employer]- All Rights Reserved Reading location - IP/workstation name: [email or web address]
[~2018-05-28 06:33] MED LIST: ACETAMINOPHEN 1,000 MG/100 ML RTUPB IV ONE; CEFAZOLIN 2 GM/D5W RTU 2 GM/50 ML RTUPB IV PRN; DEXAMETHASONE SOD PHOSPHATE INJ 4 MG/1 ML VIAL ONE; FENTANYL CITRATE INJ/PF 100 MCG/2 ML AMPUL ONE; LIDOCAINE 2% INJ-PF (20 MG/ML) 10 ML AMPUL ONE; MIDAZOLAM 2 MG/2 ML INJ ONE; ONDANSETRON HCL INJ/PF 4 MG/2 ML SDV ONE; PROPOFOL INJ 200 MG/20 ML VIAL IV ONE; RINGERS SOLUTION,LACTATED 1,000 ML IV PRN
[2018-05-28] MEDS ORDERED: CEFAZOLIN 1 GM/D5W RTU 0 GM/0 ML RTUPB IV ONE (06:43)
[2018-05-28] MEDS ORDERED: CEFAZOLIN 2 GM/D5W RTU 2 GM/50 ML RTUPB IV ONE (06:44)
[2018-05-28] MEDS ORDERED: BUPIVACAINE HCL 0.5 % INJ/PF 30 ML SDV ONE (07:12)
[2018-05-28] MEDS ORDERED: ALBUTEROL SULFATE 0.083% NEB 2.5 MG/3 ML AMPUL NEB ONE (07:33)
[2018-05-28] MEDS ORDERED: MEPERIDINE HCL/PF INJ 25 MG/1 ML DISP.SYRIN IV PRN (08:42)
[2018-05-28] MEDS ORDERED: FENTANYL CITRATE INJ/PF 100 MCG/2 ML AMPUL IV PRN ×3 (08:42)
[2018-05-28] MEDS ORDERED: DIPHENHYDRAMINE HCL 50 MG/ML VIAL IV PRN (08:42)
[2018-05-28] MEDS ORDERED: ONDANSETRON HCL INJ/PF 4 MG/2 ML SDV IV PRN ×2 (08:42→09:13)
[2018-05-28] MEDS ORDERED: PROMETHAZINE HCL INJ 25 MG/1 ML VIAL IV PRN ×2 (08:42)
[2018-05-28] MEDS ORDERED: MORPHINE SULFATE 10 MG/ML INJ IV PRN ×2 (08:42→09:13)
[2018-05-28] MEDS ORDERED: OXYCODONE-ACETAMINOPHEN 5-325 MG TABLET PO PRN (09:13)
--- NOTE | 2018-05-28 09:14 | Discharge Summary ---
Discharge Summary (SDC) - Discharge Final Diagnosis: Right olecranon bursitis with olecranon spur Date of Surgery: 05/28/18 Discharge Date: 05/28/18 Condition: Good Treatment or Instructions: Schedule Follow Up w/ Dr. Martinez Lara @ [facility] for [facility] to be seen in 10-14 days or as scheduled [place]: [place]: [place]: May remove dressing on postop day #5, keep incision covered and dry. Ice and elevate May begin finger range of motion attempting to make full fist, avoid hyperflexion of the elbow. Stool softener of choice when on pain medication. Prescriptions: Oxycodone HCl/Acetaminophen [Percocet 10-325 Mg Tablet] 1 each PO Q6 PRN #10 tablet PRN Reason: Referrals: SIDRA OVALLE DO [Primary Care Provider] - Discharge Diet: As Tolerated Respiratory Treatments at Home: Deep Breathing/Coughing Discharge Activity: No Lifting Over 10 Pounds, No Lifting/Push/Pulling Report the Following to Your Physician Immediately: Fever over 101 Degrees, Unusual Bleeding, Redness, Swelling, Warmth, Increased Soreness
--- NOTE | 2018-05-28 09:14 | Operative Report ---
Operative Report DATE OF SURGERY: 05/28/18 PREOPERATIVE DIAGNOSIS: Right olecranon bursitis with olecranon spur POSTOPERATIVE DIAGNOSIS: Same OPERATION: Right olecranon bursectomy with excision of olecranon spur SURGEON: CLIFFORD ADAMS ANESTHESIA: GA TISSUE REMOVED OR ALTERED: Bursa sent to pathology and microbiology COMPLICATIONS: None ESTIMATED BLOOD LOSS: Minimal PROCEDURE: Indication for above procedure: 58-year-old female with complaints of right elbow pain. Patient was found to have olecranon bursitis. We attempted conservative measures including injection which failed to provide long-term relief. At that point we discussed treatment options including continued conservative management versus operative intervention. Given the fact it has been over 6 months decision was made to proceed with operative treatment. Risks and benefits were explained patient verbalized understanding consented for the procedure. Procedure In Detail: Patient was seen and evaluated in the preoperative holding area. The RIGHT upper extremity was initialized and marked. Patient received 2g of Ancef IV for bacterial prophylaxis. Patient was taken back to the operative room where transferred to the operative table and placed under general anesthesia. Once they were adequately anesthetized a nonsterile tourniquet was placed on the upper extremity. A surgical team debriefing was performed ensuring all instrumentation was available, the surgical procedure was discussed with possible concerns reviewed. The upper extremity was prepped with chlorhexidine and alcohol and draped in a sterile fashion. A timeout was done identifying correct patient, procedure and extremity everyone in attendance agree with this and verbalized no concerns. The extremity was exsanguinated the tourniquet was inflated to 250 mmHg. Longitudinal skin incision was made along the olecranon bursa midline. Blunt dissection was performed. The bursa was then isolated and excised. Careful dissection was performed medially to avoid injury to the medial antebrachial cutaneous nerve and ulnar nerve. Once the bursa was adequately excised the underlying olecranon spur was isolated. The spur was then excised with a rongeur to a smooth surface. The wound was then copiously irrigated with normal saline. Tourniquet was deflated. Any peripheral bleeding was controlled with cautery until the wound was dry. 20 cc of 0.5% Marcaine with epinephrine was injected for postoperative pain control. Incision was closed with interrupted 3-0 nylon suture. Xeroform, 4 x 4's and a soft dressing was placed. Sponge counts, instrument counts, needle counts counts were correct. Patient was then awoken from anesthesia. Transferred from the operating room table to the operating room stretcher. There was no intraoperative complications patient tolerated procedure well stable to PACU. Postoperative plan: Patient will follow-up the office in 2 weeks for suture removal. Will also discuss pathology and microbiology results.
[2018-05-28] MEDS: FENTANYL CITRATE INJ/PF 100 MCG/2 ML AMPUL ONE ×2 (09:24→09:40)
[2018-05-28] MEDS ORDERED: OXYCODONE-ACETAMINOPHEN 5-325 MG TABLET ONE (10:17)
[2018-05-28] MEDS ORDERED: SUCCINYLCHOLINE CHLORIDE INJ 200 MG/10 ML VIAL ONE (11:02)
[2018-05-28 11:16] VITALS: BP 103/61
== END 2018-05-28 11:30 | disposition home or self-care (01) ==
LOC: OROUT 06:33
PROVIDERS: ATTEND Orthopaedic Surgery
DX: M70.21 Olecranon bursitis, right elbow (principal); M25.721 Osteophyte, right elbow; M19.90 Unspecified osteoarthritis, unspecified site; J45.909 Unspecified asthma, uncomplicated; M32.9 Systemic lupus erythematosus, unspecified; R06.02 Shortness of breath; F17.210 Nicotine dependence, cigarettes, uncomplicated; Z88.6 Allergy status to analgesic agent; Z88.8 Allergy status to other drugs, medicaments and biological substances; Z79.51 Long term (current) use of inhaled steroids; Z79.899 Other long term (current) drug therapy; Z85.3 Personal history of malignant neoplasm of breast
CPT/HCPCS: 24105; 24147; 93005; 36415 ×2; 87101; 84132; 85027; 80048; 81001; 88304 ×2; 71046; 93010; 94640; J2250; J3490 ×2; J1100; J3010; J0330; J2405; J2704; J0690; J0131; 1710

== ENCOUNTER → 2020-07-05 | Outpatient (CLI) | payer MEDICAID ==
--- NOTE | 2020-07-05 17:16 | RADIOLOGY REPORT (SQ) ---
EXAM DESCRIPTION: KNEE LEFT 4 VIEWS IMAGES COMPLETED DATE/TIME: 07/05/2020 4:43 pm REASON FOR STUDY: BILATERAL PRIMARY OSTEOARTHRITIS OF KNEE M17.0 BILATERAL PRIMARY OSTEOARTHRITIS O F KNEE COMPARISON: 09/28/2015 LEFT KNEE FILMS NUMBER OF VIEWS: Four views. TECHNIQUE: AP, lateral, and both oblique radiographic images acquired of the left knee. LIMITATIONS: None. FINDINGS: MINERALIZATION: [place] bone normal density BONES: Left total knee replacement with patellar resurfacing. No lucency around the hardware worriso me for loosening. No [place] bone fracture JOINT: Moderate suprapatellar knee joint effusion SOFT TISSUES: No soft tissue swelling. No radio-opaque foreign body. OTHER: No other significant finding. IMPRESSION: Moderate suprapatellar knee joint effusion Left total knee replacement with patellar resurfacing. No fracture or malalignment TECHNICAL DOCUMENTATION: JOB ID: [id number] 2010 [employer]- All Rights Reserved Reading location - IP/workstation name: [email or web address]
== END ==
LOC: OD 16:18
PROVIDERS: ATTEND Family Medicine
DX: M17.0 Bilateral primary osteoarthritis of knee (principal); M25.462 Effusion, left knee